=== PATIENT | female | born 2000 | race Caucasian/White ===

== ENCOUNTER 2024-05-26 09:48 | Emergency (ER) | payer OTHER, SELFPAY ==
[2024-05-26 10:04] VITALS: BP 127/80
[2024-05-26 10:19] LABS: % Basophils 0.3 % (0-2); % Eosinophils 0.8 % (0-6); % Immature Granulocytes 0.4 % (0-0.5); % Lymphocytes 14.4 % (20.5-51.1); % Monocytes 6.3 % (1.7-9.3); % Neutrophils 77.8 % (42.2-75.2); Absolute Eosinophils 0.1 10^3/uL (0-0.7); Absolute Lymphocytes 1.3 10^3/uL (1.2-3.4); Absolute Monocytes 0.6 10^3/uL (0.1-0.6); Absolute Neutrophils 7.1 10^3/uL (1.4-6.5); Hematocrit 39.7 % (37.0-47.0); Hemoglobin 13.3 g/dL (12.0-16.0); Mean Corp Hgb Conc. 33.5 g/dL (33.0-37.0); Mean Corpuscular Hgb 27.5 pg (27.0-31.0); Mean Platelet Volume 10.8 fL (7.4-10.4); Nucleated Red Blood Cells % 0 %; Platelet Count 270 10^3/uL (130-400); Red Blood Cell Count 4.84 10^6/uL (4.20-5.40); Red Cell Dist. Width 13.8 % (11.5-14.5); White Blood Cell Count 9.2 10^3/uL (4.8-10.8)
[2024-05-26 10:30] LABS: HCG, Serum Qualitative Screen Negative
[2024-05-26 10:33] LABS: ALT (SGPT) 26 U/L (0-35); AST (SGOT) 21 U/L (14-36); Albumin 4.5 g/dl (3.5-5.0); Alkaline Phosphatase 86 U/L (38-126); Blood Urea Nitrogen 8 mg/dl (7-17); Calcium 9.5 mg/dl (8.4-10.2); Carbon Dioxide 24 mmol/L (22-30); Chloride 104 mmol/L (98-107); Glucose 102 mg/dl (70-99); Potassium 4.1 mmol/L (3.5-5.1); Sodium 139 mmol/L (135-145); Total Bilirubin 0.8 mg/dl (0.2-1.3); Total Protein 7.6 g/dl (6.3-8.2); eGFR > 60.00
--- NOTE | 2024-05-26 10:57 | ED.GENMED ---
History of Present Illness
General
Chief Complaint: Breathing Problem
Source: patient
Exam Limitations: none
Time Seen by Provider: 05/26/24 10:51
History of Present Illness
History of Present Illness:
See MDM
Past History
Past History
ED Past Medical History: Asthma and Psychiatric (Anxiety)
ED Past Surgical History: None
Social History
Tobacco: Non-smoker
Alcohol: None
Drug: None
Personal: Single
Living: with family
Employment: Student
Family History
Family History: Diabetes and Hypertension
Phy Exam
Physical Exam
Physical Exam:
See MDM
Course
Orders/Labs/Results
Orders:
Orders
05/26/24 10:07
Test Result ONCE
05/26/24 10:12
Complete Blood Count/With Diff Urgent
Comprehensive Metabolic Panel Urgent
HCG, Serum Qualitative Screen Urgent
05/26/24 10:56
HydrOXYZINE [Atarax] 25 mg PO NOW STA
Ondansetron Orally Disint [Zofran Odt (Orally Disintegrating)] 4 mg PO NOW STA
05/26/24 10:57
CR Chest - 2 Views Urgent
Comment:
Reason For Exam: SOB
Abnormal Lab Results
05/26/24
10:12
MPV 10.8 H fL
(7.4-10.4)
Absolute Neuts (auto) 7.1 H 10^3/uL
(1.4-6.5)
Neutrophils % 77.8 H %
(42.2-75.2)
Lymphocytes % 14.4 L %
(20.5-51.1)
Glucose 102 H mg/dl
(70-99)
05/26/24 10:12
05/26/24 10:12
Vital Signs
Initial and Last Documented VS:
Initial Vital Signs
Temp Pulse Resp BP Pulse Ox
98.2 F 79 16 127/80 98
05/26/24 10:04 05/26/24 10:04 05/26/24 10:04 05/26/24 10:04 05/26/24 10:04
Last Documented Vital Signs
Temp Pulse Resp BP Pulse Ox
98.2 F 79 16 127/80 98
05/26/24 10:04 05/26/24 10:04 05/26/24 10:04 05/26/24 10:04 05/26/24 10:04
MDM/Problems Addressed
Differential Diagnosis Includes:
HPI and MDM Narrative:
23-year-old female presenting for evaluation of shortness of breath, headache and nausea. This started few days ago when her boyfriend broke up with her. She does have a history of anxiety. She denies any fevers or wheezing. On exam, she is
well-appearing and nontoxic. Her lungs are clear. Will obtain x-ray but will treat her symptoms with hydroxyzine and Zofran.
Physical exam
General: Well appearing and non-toxic
HEENT: protecting airway
Neck: appears supple
CV: No evidence of cyanosis. Regular rate and rhythm
Resp: No accessory muscle use. Lungs clear
Abd: Non-distended
Extremities: No deformities
Neuro: alert
Psych: Mildly depressed
Skin: Intact
Problems Addressed including Acute and Chronic Conditions affecting care:
1. Shortness of breath
Acuity: acute
Prognosis: stable
Details: Likely in the setting of anxiety and depression but will obtain chest x-ray.
Updates
Chest x-ray without acute pathology. Patient feeling better. Discussed return precautions
Differential Diagnosis (but not limited to): Pneumonia, depression, anxiety
Testing considered: D-dimer but she is neither tachycardic nor hypoxic
Drug therapy (if applicable): OTC meds, please see d/c instruction regarding Rx drugs
Amount and/or Complexity of Data Reviewed
Clinical info obtained from: Patient
External data reviewed: N/A
Labs I independently reviewed (but not limited to): Blood cell count normal
Radiology: X-ray independently reviewed: Chest x-ray clear
Pulse Ox: not hypoxic
EKG independently reviewed: N/A
Supervisor Public Health Nursing: N/A
Critical Care: N/A
Risk of Complication:
Social Determinants of health: Good social support
Discussed with other providers: N/A
Escalation of Care includes Admit/Obs: After being observed in the Emergency Department, pt stable for discharge.
Occasional wrong word or 'sound a like' substitutions may have occurred due to the inherent limitations of voice recognition software. Read the chart carefully and recognize, using context, where substitutions have occurred.
*Critical Care Note
Total Time (30-74mins, 75-104mins- exclusive of procedures): Not Applicable
ED Attending Note
-
Portions of this chart may have been created with voice recognition software.� Occasional wrong word or��sound alike� substitutions may have occurred due to the inherent limitations of voice recognition software.
Discharge Plan
Departure
Patient Disposition: Home (Routine Discharge)
Date of Disposition: 05/26/24
Time of Disposition: 12:49
Patient with high blood pressure during this ER visit?: No
Discharge Problem:
Dyspnea
Instructions: Shortness of Breath (Dyspnea) (DC)
Prescriptions:
New
hydroxyzine HCl 25 mg tablet
25 mg PO BID PRN (Reason: anxiety ) Qty: 20 0RF
ondansetron 4 mg Tablet,Disintegrating
4 mg PO BIDPRN PRN (Reason: nausea/vomiting) Qty: 10 0RF
No Action
Albuterol Sulfate Hfa
2 puff inhalation Q4H PRN (Reason: SOB)
hydroxyzine HCl 10 MG/5 ML solution
25 mg PO BIDPRN PRN (Reason: anxiety) Qty: 100 0RF
Referrals:
Matt Cardoso DO [Family Provider] -
Activity Restrictions/Additional Instructions:
Please return for any worsening symptoms.
You may return at any time if you have further concerns.
Please follow up with your doctor at the first available appointment, preferably this week.
Thank you for choosing [facility].
Interventions
Interventions:
*Risk Screen - Suicide Last Done: 05/26/24 10:04
*General Assessment Last Done: 05/26/24 10:52
*Neglect/Abuse Screening Last Done: 05/26/24 10:04
ED- Fall Risk Assessment Last Done: 05/26/24 10:52
ED- Cardiac Assessment Last Done: 05/26/24 10:52
ED- Pulmonary Assessment Last Done: 05/26/24 10:52
Discharge Date and Time
Print Language: GERMAN
[2024-05-26] MEDS: ATARAX 25 MG PO (11:39)
[2024-05-26] MEDS: ZOFRAN ODT (ORALLY DISINTEGRATING) 4 MG PO (11:39)
== END 2024-05-26 13:09 | disposition home or self-care (01) ==
LOC: EMR 09:48
PROVIDERS: Emergency Medicine; EMERGENCY PHYSICIAN Student in an Organized Health Care Education/Training Program; FAMILY PHYSICIAN Family Medicine
DX: R06.00 Dyspnea, unspecified (principal); R51.9 Headache, unspecified; R11.0 Nausea; F41.9 Anxiety disorder, unspecified; J45.909 Unspecified asthma, uncomplicated
CPT/HCPCS: 99284; 71046; 80053; 84703; 85025

== ENCOUNTER 2025-03-15 07:15 | Emergency (ER) | payer OTHER, SELFPAY ==
[2025-03-15] VITALS (7 sets, daily range): BP systolic 111–130; BP diastolic 71–82; BMI 34.1
--- NOTE | 2025-03-15 08:05 | ED.GENMED ---
ED Provider Triage
<Warren Leavitt MD, Resident - Last Filed: 03/15/25 17:22>
-
Patient seen by provider in Triage?: Seen in Triage
History of Present Illness
<Warren Leavitt MD, Resident - Last Filed: 03/15/25 17:22>
General
Chief Complaint: Abdominal Pain
Source: patient
Exam Limitations: none
Time Seen by Provider: 03/15/25 07:35
History of Present Illness
History of Present Illness:
24 y/o female with moderate to severe abdominal pain since 11 pm last night, sudden onset which radiates to the back, sharp in intensity, associated with nausea and 3-4 episodes of vomiting. Has had multiple similar clinical presentations in the
past, first starting in May sporadically, then starting every month thereafter ( has not seen doctor for these issues). Usually aggravated 2-3 before onset of her period. No relieving factors. No fever, chills, diarrhea, hematemesis, no burning
micturation, no urinary frequency, no vaginal discharge. No prior surgeries. She vapes, drinks alcohol occasionally, no drugs.
Past History
<Warren Leavitt MD, Resident - Last Filed: 03/15/25 17:22>
Past History
ED Past Medical History: Asthma and Psychiatric (Anxiety)
ED Past Surgical History: None
Social History
Tobacco: Non-smoker
Alcohol: None
Drug: None
Personal: Single
Living: with family
Employment: Student
Family History
Family History: Diabetes and Hypertension
Review of Systems
<Warren Leavitt MD, Resident - Last Filed: 03/15/25 17:22>
Review of Systems
All Other Systems: ROS reviewed and negative except as documented in HPI and ROS
Phy Exam
<Warren Leavitt MD, Resident - Last Filed: 09/30/25 17:22>
General Physical Exam
General Presentation: well appearing and no apparent distress
General Skin: warm and dry
General Habitus: normal
Cardiovascular Exam
Cardiovascular Exam: regular rate/rhythm, no edema, no gallop, no JVD, no murmur and normal peripheral pulses
Pulmonary Exam
Pulmonary Exam: lungs clear and no respiratory distress
Gastrointestinal Exam
Gastrointestinal Exam: normal bowel sounds, non tender, soft and non distended
Neurological Exam
Neurological Exam: alert and oriented x3
Musculoskeletal Exam
Musculoskeletal Exam: full ROM and no edema
Skin Exam
Skin Exam: normal color and warm/dry
Psychiatric Exam
Psychiatric Exam: normal mood/affect
Course
<Warren Leavitt MD, Resident - Last Filed: 03/15/25 17:22>
Orders/Labs/Results
Orders:
Orders
03/15/25 07:53
IV Insert/Care/Rem.- Treatment PRN
03/15/25 08:06
0.9% Sodium Chloride 1000 ml [Nss] 1,000 ml IV BOLUS
03/15/25 08:11
Test Result ONCE
03/15/25 08:18
Complete Blood Count/With Diff Urgent
Comprehensive Metabolic Panel Urgent
HCG, Serum Qualitative Screen Urgent
Lipase Urgent
TSH Reflex To Free T4 Urgent
Urinalysis Reflex To Culture Urgent
Date Specimen was Collected: 03/15/25
Time Specimen was Collected: 07:54
Urine Microscopic Reflex Cult Urgent
Urine Culture Urgent
YADI Source: U
Specimen Description:
Obtained by: Random
Date Specimen was Collected: 03/15/25
Time Specimen was Collected: 07:54
03/15/25 08:38
Ketorolac [Toradol] 15 mg IV NOW STA
Ondansetron Injectable [Zofran] 4 mg IV NOW STA
Abnormal Lab Results
03/15/25
08:18
WBC 11.3 H 10^3/uL
(4.8-10.8)
MCV 80.6 L fL
(81.0-99.0)
MPV 11.9 H fL
(7.4-10.4)
Abs Immat Gran (auto) 0.1 H 10^3/uL
(0-0.05)
Absolute Neuts (auto) 10.1 H 10^3/uL
(1.4-6.5)
Absolute Lymphs (auto) 0.6 L 10^3/uL
(1.2-3.4)
Neutrophils % 88.8 H %
(42.2-75.2)
Lymphocytes % 5.6 L %
(20.5-51.1)
Glucose 107 H mg/dl
(70-99)
Urine Ketones 1+ A
(Negative)
Ur Occult Blood Reflex 4+ A
(Negative)
Leukocyte Esterase Rfl 1+ A
(Negative)
Urine RBC 11-15 A /HPF
(0-2)
Urine Bacteria (Reflex) Many A
(Negative)
Urine Albumin (Reflex) 2+ A
(Neg - Trace)
03/15/25 08:18
03/15/25 08:18
Vital Signs
Initial and Last Documented VS:
Initial Vital Signs
Temp Pulse Resp BP Pulse Ox
98.6 F 68 18 130/82 100
03/15/25 07:17 03/15/25 07:17 03/15/25 07:17 03/15/25 07:17 03/15/25 07:17
Last Documented Vital Signs
Temp Pulse Resp BP Pulse Ox
98.3 F 86 16 111/72 99
03/15/25 11:23 03/15/25 11:23 03/15/25 11:23 03/15/25 11:23 03/15/25 11:23
<Mary Jamesonimani, DO - Last Filed: 03/15/25 10:30>
Orders/Labs/Results
Orders:
Orders
03/15/25 07:53
IV Insert/Care/Rem.- Treatment PRN
03/15/25 08:06
0.9% Sodium Chloride 1000 ml [Nss] 1,000 ml IV BOLUS
03/15/25 08:11
Test Result ONCE
03/15/25 08:18
Complete Blood Count/With Diff Urgent
Comprehensive Metabolic Panel Urgent
HCG, Serum Qualitative Screen Urgent
Lipase Urgent
TSH Reflex To Free T4 Urgent
Urinalysis Reflex To Culture Urgent
Date Specimen was Collected: 03/15/25
Time Specimen was Collected: 07:54
Urine Microscopic Reflex Cult Urgent
Urine Culture Urgent
YADI Source: U
Specimen Description:
Obtained by: Random
Date Specimen was Collected: 03/15/25
Time Specimen was Collected: 07:54
03/15/25 08:38
Ketorolac [Toradol] 15 mg IV NOW STA
Ondansetron Injectable [Zofran] 4 mg IV NOW STA
Abnormal Lab Results
03/15/25
08:18
WBC 11.3 H 10^3/uL
(4.8-10.8)
MCV 80.6 L fL
(81.0-99.0)
MPV 11.9 H fL
(7.4-10.4)
Abs Immat Gran (auto) 0.1 H 10^3/uL
(0-0.05)
Absolute Neuts (auto) 10.1 H 10^3/uL
(1.4-6.5)
Absolute Lymphs (auto) 0.6 L 10^3/uL
(1.2-3.4)
Neutrophils % 88.8 H %
(42.2-75.2)
Lymphocytes % 5.6 L %
(20.5-51.1)
Glucose 107 H mg/dl
(70-99)
Urine Ketones 1+ A
(Negative)
Ur Occult Blood Reflex 4+ A
(Negative)
Leukocyte Esterase Rfl 1+ A
(Negative)
Urine RBC 11-15 A /HPF
(0-2)
Urine Bacteria (Reflex) Many A
(Negative)
Urine Albumin (Reflex) 2+ A
(Neg - Trace)
03/15/25 08:18
03/15/25 08:18
Vital Signs
Initial and Last Documented VS:
Initial Vital Signs
Temp Pulse Resp BP Pulse Ox
98.6 F 68 18 130/82 100
03/15/25 07:17 03/15/25 07:17 03/15/25 07:17 03/15/25 07:17 03/15/25 07:17
Last Documented Vital Signs
Temp Pulse Resp BP Pulse Ox
98.3 F 86 16 111/72 99
03/15/25 11:23 03/15/25 11:23 03/15/25 11:23 03/15/25 11:23 03/15/25 11:23
<Warren Leavitt MD, Resident - Last Filed: 03/15/25 17:22>
MDM/Problems Addressed
Differential Diagnosis Includes:
Primary Dysmenorrhea, GERD, functional abdominal pain, endometriosis, Peptic ulcer disease
MDM/Problems Addressed:
24 year old female with multiple episodes of abdominal pain which radiate to her back, usually preceding her period. Physical exam is benign. Vitals are stable and patient afebrile.
CBC and CMP are unremarkable
Ordered toradol for pain, and zofran for nausea
Patient has stable vitals, and will be discharged home on Zofran. Instructions given to f/u with pcp within a week.
<Warren Leavitt MD, Resident - Last Filed: 03/15/25 17:22>
*Pulse Oximetry
SaO2: 100
Oxygen Mode of Delivery: Room air
Patient hypoxic: no
*Critical Care Note
Total Time (30-74mins, 75-104mins- exclusive of procedures): Not Applicable
ED Attending Note
<Warren Leavitt MD, Resident - Last Filed: 03/15/25 17:22>
-
Portions of this chart may have been created with voice recognition software.� Occasional wrong word or��sound alike� substitutions may have occurred due to the inherent limitations of voice recognition software.
<Mary Richards DO - Last Filed: 03/15/25 10:30>
ED Attending Note
Patient seen and examined by attending physician: Yes
I performed the substantive portion of visit, reviewed & personally made and approve the management plan that is documented in note by myself or HAYDEN.: Yes
I performed a history and physical exam of patient and discussed management with resident, I reviewed resident's note and agree with documented findings and plan of care.: Yes
ED Attending Note:
24-year-old female without significant past medical history presenting for upper abdominal discomfort. Patient reports symptoms started last evening. She notes associated nausea and vomiting. Denies changes in her stool. Denies any fever.
Denies chest pain or difficulty breathing. Denies any history of abdominal surgeries. Does note that last evening she ate a cheese steak with mayonnaise and symptoms started few hours later. Also notes similar symptoms in the past with her
menstrual cycle. She is currently on her menstrual period. Denies any focal tenderness to her abdomen. Denies additional acute medical complaints. Vital signs are normal.
On exam patient resting comfortably, nontoxic. Overall benign abdominal exam. No focal tenderness to the abdomen. Ultimately suspect mild enteritis versus gastritis, possibly related to the food that she ate last night versus her menstrual cycle.
No current indication for advanced imaging given absence of tenderness on exam. Will screen with laboratory analysis and treat with Zofran, IV fluids, Toradol and reassess for improvement
10:30 - On reassessment patient is feeling improved. Labs are unremarkable. At this time feel stable for discharge with continued outpatient supportive therapy. Return precautions discussed and patient verbalized understanding
Discharge Plan
Departure
Patient Disposition: Home (Routine Discharge)
Date of Disposition: 03/15/25
Time of Disposition: 10:18
Patient with high blood pressure during this ER visit?: No
Condition: Good
Discharge Problem:
Nausea & vomiting
Instructions: Nausea and Vomiting, Adult (DC), Abdominal Pain
Prescriptions:
New
ondansetron 4 mg Tablet,Disintegrating
4 mg PO TIDPRN PRN (Reason: nausea/vomiting) Qty: 6 0RF
No Action
Albuterol Sulfate Hfa
2 puff inhalation Q4H PRN (Reason: SOB)
hydroxyzine HCl 10 MG/5 ML solution
25 mg PO BIDPRN PRN (Reason: anxiety) Qty: 100 0RF
hydroxyzine HCl 25 mg tablet
25 mg PO BID PRN (Reason: anxiety ) Qty: 20 0RF
ondansetron 4 mg Tablet,Disintegrating
4 mg PO BIDPRN PRN (Reason: nausea/vomiting) Qty: 10 0RF
Referrals:
Matt Cardoso DO [Family Provider, Family Practice]
Activity Restrictions/Additional Instructions:
You were seen in the emergency department for nausea and vomiting
You were found to have reassuring laboratory analysis, and improvement after IV fluids and antiemetics.
Please follow-up closely with your primary care physician.
Return to the emergency department for any worsening of your symptoms, or any development of chest pain, difficulty breathing, abdominal pain with persistent vomiting and inability to tolerate food or liquid by mouth (concern for dehydration),
weakness, headache or confusion, fever greater than 100.4, or any additional symptoms that are concerning to you.
Thank you for choosing [facility].
Interventions
Interventions:
*Risk Screen - Suicide Last Done: 03/15/25 07:17
*General Assessment Last Done: 03/15/25 07:17
*Neglect/Abuse Screening Last Done: 03/15/25 08:12
*ED- Fall Risk Assessment Last Done: 03/15/25 08:12
*ED COVID-19 Vaccine History Last Done: 03/15/25 08:12
*ED Influenza Vaccine History Last Done: 03/15/25 08:12
*Nursing Disposition Last Done: 03/15/25 11:23
QO-Zrbxqc-Frlobnpzgb Assessment Last Done: 03/15/25 08:12
Discharge Date and Time
Discharge Date/Time: 03/15/25 11:10
Print Language: DIVEHI
[2025-03-15] MEDS: NSS 1000 IV (08:17)
[2025-03-15 08:37] LABS: Hematocrit 39.1 % (37.0-47.0); Hemoglobin 13.1 g/dL (12.0-16.0); Mean Corp Hgb Conc. 33.5 g/dL (33.0-37.0); Mean Corpuscular Volume 80.6 fL (81.0-99.0); Nucleated Red Blood Cells % 0 %; Platelet Count 275 10^3/uL (130-400); Red Cell Dist. Width 13.7 % (11.5-14.5)
[2025-03-15 08:42] LABS: Urine Character Slightly Cloudy (Clear)
[2025-03-15 08:47] LABS: HCG, Serum Qualitative Screen Negative
[2025-03-15 08:52] LABS: ALT (SGPT) 30 U/L (0-35); AST (SGOT) 21 U/L (14-36); Albumin 4.5 g/dl (3.5-5.0); Alkaline Phosphatase 95 U/L (38-126); Blood Urea Nitrogen 10 mg/dl (7-17); Calcium 9.5 mg/dl (8.4-10.2); Carbon Dioxide 26 mmol/L (22-30); Chloride 105 mmol/L (98-107); Estimated Creatinine Clearance 120 ml/min; Glucose 107 mg/dl (70-99); Lipase 41 U/L (23-300); Potassium 4.5 mmol/L (3.5-5.1); Sodium 140 mmol/L (135-145); Total Protein 7.4 g/dl (6.3-8.2); eGFR > 60.00
[2025-03-15] MEDS: TORADOL 15 MG IV (08:53)
[2025-03-15] MEDS: ZOFRAN 4 MG IV (08:53)
[2025-03-15 09:01] LABS: Urine Squamous Cell >30 /LPF (Few)
--- NOTE | 2025-03-15 11:11 | EDRN ---
Reviewed discharge instructions with patient. Verbalized understanding. Ambulated with steady gait to the lobby.
== END 2025-03-15 11:10 | disposition home or self-care (01) ==
LOC: EMR 07:15
PROVIDERS: EMERGENCY PHYSICIAN Student in an Organized Health Care Education/Training Program; FAMILY PHYSICIAN Family Medicine
DX: R11.2 Nausea with vomiting, unspecified (principal); J45.909 Unspecified asthma, uncomplicated; F41.9 Anxiety disorder, unspecified; F17.290 Nicotine dependence, other tobacco product, uncomplicated
CPT/HCPCS: 99284; 96374; 96375; 96361; 80053; 81003; 81015; 83690; 84443; 84703; 85025; 87086